=== PATIENT | male | born 1945 | race Caucasian/White ===

== ENCOUNTER → 2024-10-30 11:13 | Outpatient (REF) | payer MEDICARE, SELFPAY | LOC: RAD 11:13 | PROVIDERS: ATTENDING PHYSICIAN Internal Medicine Cardiovascular Disease; FAMILY PHYSICIAN Internal Medicine | DX: R09.89 Other specified symptoms and signs involving the circulatory and respiratory systems (principal) | CPT/HCPCS: 76770 ==